=== PATIENT | female | born 1995 | race African-American/Black ===

== ENCOUNTER 2025-04-13 07:26 | Emergency (ER) | payer OTHER, SELFPAY ==
[2025-04-13 07:34] VITALS: BP 170/99; PULSE 91; TEMP 36.8; O2SAT 99; BMI 32.3
--- OUTSIDE RECORDS SUMMARY | 2025-04-13 07:42 | XMS_ITS | Encounter Summary ---
Author Organization [facility] Address [address] [place] [address] Care Team Providers Care Property Manager Name Role Phone Unavailable Primary Care Provider Unavailabl e Encounter Details Date Type Department Care Team (Late st Contact Info) Description 2016 FollowUp Telephone Encounter [facility] [address] [place], [place] [id number] Jade De Leon Social History Tobacco Use Types Packs/Day Years Used Date Smoking Tobacco: Every Day Cigarettes 0.3 5 Smokeless Tobacco: Never Alcohol Use Standard Drinks/Week Comments No 0 (1 standard drink = 0.6 oz pur e alcohol) Comments No Sex and Gender Information Value Date Recorded Sex Assigned at Not on file Legal Sex Female 11:02 PM EST Gender Identity Not on file Sexual Orientation Not on file documented as of this encounter Plan of Treatment Not on file documented as of this encounter Visit Diagnoses Not on filedocumented in this encounter
--- OUTSIDE RECORDS SUMMARY | 2025-04-13 07:42 | XMS_ITS | Encounter Summary ---
Author Organization [facility] Address [address] [place] [address] Care Team Providers Care Poolroom/Poolhall Manager Name Role Phone Unavailable Primary Care Provider Unavailabl e Encounter Details Date Type Department Care Team (Late st Contact Info) Description 05/11/2016 PAT Telephone [facility] Pre-Admission Testing [address] [place] [address] Ghazala Forte RN Social History Tobacco Use Types Packs/Day Years Used Date Smoking Tobacco: Every Day Cigarettes 0.5 5 Smokeless Tobacco: Never Alcohol Use Standard Drinks/Week Comments No 0 (1 standard drink = 0.6 oz pur e alcohol) Comments No Sex and Gender Information Value Date Recorded Sex Assigned at Not on file Legal Sex Female 11:02 PM EST Gender Identity Not on file Sexual Orientation Not on file documented as of this encounter Last Filed Vital Signs Vital Sign Reading Time Taken Comments Blood Pressure - - Pulse - - Temperature - - Respiratory Rate - - Oxygen Saturation - - Inhaled Oxygen Concentration - - Weight 158.8 kg (350 lb) 05/11/2016 1:12 PM EDT Height 167.6 cm (5' 6 ) 05/11/2016 1:12 PM EDT Body Mass Index 56.49 05/11/2016 1:12 PM EDT documented in this encounter Plan of Treatment Not on file documented as of this encounter Visit Diagnoses Not on filedocumented in this encounter
--- OUTSIDE RECORDS SUMMARY | 2025-04-13 07:42 | XMS_ITS | Clinical Summary ---
Author Organization [facility] Address [address] [place] [id number] Care Team Providers Care Counter Clerk Name Role Phone Unknown, Attending Provider Primary Care Provide r Unavailable Source Comments This information has been disclosed to you from confidential records protectedfrom disclosure by state law. You shall make no further disclosure of thisinformation without the specific, written, and informed release of theindividual to whom it pertains, or as otherwise permitted by law. A generalauthorization for the release of medical or other information is not sufficientfor the purposes of therelease of HIV test results or diagnoses. [id number] Allergies No known active allergies Medications No known medications Active Problems Problem Noted Date Diagnosed Date Morbid obesity 10/04/2022 Sterilization 10/04/2022 Family History Medical History Relation Comments Diabetes Maternal Grandfather Breast Cancer Maternal Grandmother Diabetes Maternal Grandmother ALS Paternal Grandfather Relation Status Comments Father Alive Maternal Grandfather Maternal Grandmother Mother Alive Paternal Grandfather Social History Tobacco Use Types Packs/Day Years Used Date Smoking Tobacco: Never Smokeless Tobacco: Never Tobacco Cessation:Counseling Given: Not Answered Alcohol Use Standard Drinks/Week Comments Not Currently 0 (1 standard drink = 0.6 oz pur e alcohol) Comments No Sex and Gender Information Value Date Recorded Sex Assigned at Not on file Legal Sex Female 11:08 AM EDT Gender Identity Not on file Sexual Orientation Not on file Last Filed Vital Signs Vital Sign Reading Time Taken Comments Blood Pressure 122/84 11/05/2022 9:28 AM EST Pulse 86 11/05/2022 9:28 AM EST Temperature 36.7 C (98.1 F) 10/20/2022 9:50 AM EST Respiratory Rate 18 10/20/2022 10:1 5 AM EST Oxygen Saturation 98% 11/05/2022 9:28 AM EST Inhaled Oxygen Concentration 98% 11/05/2022 9 :28 AM EST Weight 146.1 kg (322 lb 3.2 oz) 11/05/2022 9:28 AM EST Height 167.6 cm (5' 6 ) 11/05/2022 9:28 AM EST Body Mass Index 52 11/05/2022 9:28 AM EST Plan of Treatment Health Maintenance Due Date Last Done Comments Hepatitis C Screening ([facility]) 1994 Alcohol Misuse Screening 2012 Depression Screening 2012 HIV Screening 2012 Immunization: Hepatitis B (1 of 3 - 19+ 3-dose series) 2013 Immunization: COVID-19 ( season) 2024 02/21/2021 Cervical Cancer Screening/Pap Smear ([facility]) 2024 Immunization: Influenza ([facility]) (Season Ended) 2025 08/08/2023, 10/30/2020, 11/28/2019, Additional history exists Immunization: DTaP/Tdap/Td (3 - Td or Tdap) 11/07/2028 11/07/2018, 08/12/2017 Immunization: Pneumococcal Aged Out N o longer eligible based on patient's age to complete this topic Insurance [address] [place] [address] [facility] CHO[facility] Care Teams Counter Clerk Relationship Specialty Start Date End Date Unknown, Attending Provider PCP - General 09/24/22
--- NOTE | 2025-04-13 07:51 | ED_ITS ---
HPI HPI - General Adult General Chief complaint: Eye Problems Stated complaint: EYE PAIN Time Seen by Provider: 04/13/25 07:31 Mode of arrival: walk-in History of Present Illness HPI narrative: 29-year-old female presents to the emergency department for a bump on her left lower eyelid which she has had for multiple days and seems to be getting better but also on her right upper lid which has been there for about 2 days and seems to be getting worse. There is been no drainage or trauma and she does not wear make-up. She states she has been suffering from some allergies recently, she has had a runny nose. Related Data Previous Rx's ?Medication ?Instructions ?Recorded erythromycin 5 mg/gram (0.5 %) eye 1 applic ophthalmic (eye) Q8H #3.5 04/13/25 ointment grams Allergies Allergy/AdvReac Type Severity Reaction Status Date / Time No Known Drug Allergies Allergy Verified 04/13/25 07:33 Opioid HPI Opioid Management Most Recent Opioid Data: Last Pain Scale 5 Today, 07:34 Review of Systems ROS Narrative A ten point review of systems is negative except as noted above. PFSH PFSH Social History Little interest or pleasure in doing things: not at all Feeling down, depressed, or hopeless: not at all Exam Narrative Exam Narrative: Nurses note and vital signs reviewed and patient is not hypoxic. General: The patient appears well and in no apparent distress. Patient is resting comfortably on cart. Skin: Warm, dry, no pallor noted. There is no rash noted. Head: Normocephalic, atraumatic Eye: Normal conjunctiva, no drainage, left lower lid has a small area of localized swelling and minimal erythema at the central portion. The right upper eyelid has similar finding but is slightly more swollen and slightly more erythematous. There is no open area or drainage. Ears, Nose, Mouth, and Throat: oral mucosa is moist. Nares patent. Cardiovascular: Regular Rate and Rhythm Respiratory: Patient is in no distress, no accessory muscle use Back: non-tender GI: Soft and nontender Musculoskeletal: No joint swelling Neurological: Awake and alert Psychiatric: Cooperative Constitutional Vital Signs, click to edit/add: Last Vital Signs Temp 98.2 F 04/13/25 07:34 Pulse 91 H 04/13/25 07:34 Resp 18 04/13/25 07:34 BP 170/99 H 04/13/25 07:34 Pulse Ox 99 04/13/25 07:34 O2 Del Method Room Air 04/13/25 07:34 Course Vital Signs Vital signs: Vital Signs Temperature 98.2 F 04/13/25 07:34 Pulse Rate 91 H 04/13/25 07:34 Respiratory Rate 18 04/13/25 07:34 Blood Pressure 170/99 H 04/13/25 07:34 Pulse Oximetry 99 04/13/25 07:34 Oxygen Delivery Method Room Air 04/13/25 07:34 Temperature 98.2 F 04/13/25 07:34 Pulse Rate 91 H 04/13/25 07:34 Respiratory Rate 18 04/13/25 07:34 Blood Pressure 170/99 H 04/13/25 07:34 Pulse Oximetry 99 04/13/25 07:34 Oxygen Delivery Method Room Air 04/13/25 07:34 Medical Decision Making MDM Narrative Medical decision making narrative: My clinical impression is that she has bilateral styes. She was prescribed erythromycin ointment and was advised warm compresses. Treatment diagnosis and follow-up were discussed with the patient. Differential Diagnosis Differential Diagnosis: Internal hordeolum, external hordeolum Discharge Plan Discharge Chief Complaint: Eye Problems Clinical Impression: Hordeolum externum left lower eyelid, Hordeolum externum of right upper eyelid Patient Disposition: Home, Self-Care Time of Disposition Decision: 07:49 Condition: Good Mode of Transportation: Private Vehicle Prescriptions / Home Meds: New erythromycin 5 mg/gram (0.5 %) ointment 1 applic ophthalmic (eye) Q8H Qty: 3.5 0RF Print Language: Zimbabwean Instructions: Cherri (ED) Referrals: Physician,Non-Staff, MD [Primary Care Provider] - 1 week SANTHOSH JASSO [Physician, Opthalmology] - 1 week
[2025-04-13 07:55] VITALS: BP 146/88; PULSE 88; O2SAT 98
== END 2025-04-13 07:55 | disposition home or self-care (01) ==
PROVIDERS: Emergency Provider Emergency Medicine
DX: H00.015 Hordeolum externum left lower eyelid (principal); H00.011 Hordeolum externum right upper eyelid
CPT/HCPCS: 99283